=== PATIENT | female | born 1960 | race Caucasian/White ===

== ENCOUNTER 2023-05-10 13:07 | Outpatient (CLI) | payer SELFPAY | END 2023-05-10 23:59 | disposition left against medical advice (07) | LOC: EMS 13:07 | DX: E11.649 Type 2 diabetes mellitus with hypoglycemia without coma (principal); Z79.84 Long term (current) use of oral hypoglycemic drugs ==

== ENCOUNTER 2023-05-18 06:25 | Outpatient (CLI) | payer SELFPAY | END 2023-05-18 21:41 | disposition left against medical advice (07) | LOC: EMS 06:25 | DX: E16.2 Hypoglycemia, unspecified (principal) ==